=== PATIENT | male | born 1990 | race Caucasian/White ===

== ENCOUNTER 2017-03-16 08:06 | Emergency (ER) | payer SELFPAY ==
[2017-03-16 08:12] VITALS: BP 134/77
--- NOTE | 2017-03-16 08:28 | ER Document Report ---
HPI - HPI Patient complains to provider of: left leg pain Onset: Last week Onset/Duration: Persistent Quality of pain: Sharp Pain Level: 4 Context: Patient presents complaining of left lower extremity pain for the past week. Patient states 7 days ago he had back pain although he denies any low back pain at this time. Patient denies any fever, urinary retention or incontinence. Patient denies any injury. Patient does report a history of low back pain with sciatica in the past and suspects the same today. Associated Symptoms: Other - Low back pain. denies: Fever, Headache, Vomiting Exacerbated by: Movement Relieved by: Denies Similar symptoms previously: Yes Recently seen / treated by doctor: No - ROS ROS below otherwise negative: Yes Systems Reviewed and Negative: Yes All other systems reviewed and negative - CONSTITUTIONAL Constitutional: DENIES: Fever, Chills - NEURO Neurology: DENIES: Weakness - GASTROINTESTINAL Gastrointestinal: DENIES: Nausea - URINARY Urinary: DENIES: Dysuria Notes: No retention or incontinence - MUSCULOSKELETAL Musculoskeletal: REPORTS: Extremity pain. DENIES: Back Pain, Neck Pain - DERM Skin Color: Normal Skin Problems: None Past Medical History - General Information source: Patient - Social History Smoking Status: Never Smoker Frequency of alcohol use: None Drug Abuse: None Occupation: [employer] Lives with: Spouse/Significant other Family History: Reviewed & Not Pertinent Pulmonary Medical History: Reports: Hx Asthma Renal/ Medical History: Denies: Hx Peritoneal Dialysis Musculoskeltal Medical History: Reports Other Other: sciatica Surgical Hx: Negative Vertical Provider Document - CONSTITUTIONAL Agree With Documented VS: Yes Exam Limitations: No Limitations General Appearance: WD/WN, No Apparent Distress Notes: PHYSICAL EXAMINATION: GENERAL: Well-appearing, well-nourished and in no acute distress. HEAD: Atraumatic, normocephalic. EYES: sclera clear, anicteric, conjunctiva are normal. ENT: nares patent, Moist mucous membranes. NECK: Normal range of motion, supple no lymphadenopathy LUNGS: respirations unlabored HEART: Regular rate and rhythm without murmurs EXTREMITIES: Normal range of motion, no pitting or edema. No cyanosis. Gait normal, pt ambulates without difficulty BACK: no lower lumbar tenderness, no deformities or step-offs. No CVA tenderness. NEUROLOGICAL: Cranial nerves grossly intact. Normal speech, normal gait. No saddle anesthesia. 2+achilles, patellar reflexes bilat PSYCH: Normal mood, normal affect. SKIN: Warm, Dry, normal turgor, no rashes or lesions noted. - INFECTION CONTROL TRAVEL OUTSIDE OF THE [place] IN LAST 30 DAYS: No - RESPIRATORY O2 Sat by Pulse Oximetry: 96 Course - Re-evaluation Re-evalutation: 03/16/17 08:27 Discussed worsening emergent symptoms that patient should return immediately for. Patient verbalized understanding and agrees with plan of care - Vital Signs Vital signs: Temp Pulse Resp BP Pulse Ox 97.9 F 97 14 134/77 H 96 03/16/17 08:11 03/16/17 08:11 03/16/17 08:11 03/16/17 08:11 03/16/17 08:11 Discharge - Discharge Clinical Impression: Sciatica Qualifiers: Laterality: left Qualified Code(s): M54.32 - Sciatica, left side Condition: Stable Disposition: HOME, SELF-CARE Instructions: Oral Narcotic Medication ([facility]), Sciatica ([facility]), Steroid Medication Additional Instructions: Return immediately for any new or worsening symptoms Followup with your primary care provider, call tomorrow to make a followup appointment Prescriptions: Oxycodone HCl/Acetaminophen [Percocet 5-325 mg Tablet] 1 tab PO ASDIR PRN #15 tablet PRN Reason: Prednisone [Deltasone 20 mg Tablet] 3 tab PO DAILY 5 Days tablet Forms: Return to Work Referrals: [facility] [Provider Group] - Follow up tomorrow
== END 2017-03-16 08:30 | disposition home or self-care (01) ==
LOC: ER 08:06
DX: M54.32 Sciatica, left side (principal); M79.605 Pain in left leg; M54.5 Low back pain
CPT/HCPCS: 99283

== ENCOUNTER 2017-03-19 08:18 | Emergency (ER) | payer SELFPAY ==
[2017-03-19] MEDS ORDERED: IBUPROFEN 800 MG TABLET PO ONE (10:10)
--- NOTE | 2017-03-19 10:12 | ER Document Report ---
ED Neck/Back Problem - General Chief Complaint: Back Pain Stated Complaint: BACK PAIN/LEFT LEG PAIN Time Seen by Provider: 03/19/17 09:42 Mode of Arrival: Ambulatory Information source: Patient Notes: Male presents to ED for left-sided back pain radiating down his left leg for the last 10 days. He states it has been worse since he was in the ED on Sunday. He was told to come back if it got worse. Patient states it is very painful to lift the leg and it is tight to the back of the leg. He had prednisone and 800 and ibuprofen. States he had a little bit of Flexeril left. TRAVEL OUTSIDE OF THE [place] IN LAST 30 DAYS: No - HPI Onset: Other - 10 days Onset: Chronic Timing: Still present Quality of pain: Sharp Severity: Moderate Context: Turning Recent injury: No Associated symptoms: Radiation to leg, Lower back pain Exacerbated by: Movement of trunk, Sitting position Similar symptoms previously: Yes Recently seen / treated by doctor: Yes - Related Data Allergies/Adverse Reactions: codeine Allergy (Verified 03/19/17 08:53) unknown Home Medications: Current Home Medications Albuterol Sulfate [Ventolin Hfa 8 gm Mdi (1 Mdi/ER Disp)] 2 puff IH PRN PRN [History] Budesonide/Formoterol Fumarate [Symbicort Hfa 160-4.5 Mcg Inhaler 6 gm] 2 puff IH Q12 03/19/17 [History] Cetirizine HCl [Zyrtec 10 mg Tablet] 1 tab PO DAILY 03/19/17 [History] Past Medical History - General Information source: Patient - Social History Smoking Status: Never Smoker Cigarette use (# per day): No Chew tobacco use (# tins/day): No Smoking Education Provided: No Frequency of alcohol use: None Drug Abuse: None Occupation: [employer] professor Lives with: Family Family History: Arthritis, Hyperlipidemia, Hypertension, Malignancy, Thyroid Disfunction Patient has suicidal ideation: No Patient has homicidal ideation: No - Past Medical History Cardiac Medical History: Reports: None Pulmonary Medical History: Reports: Hx Asthma, Hx Bronchitis EENT Medical History: Reports: None Neurological Medical History: Reports: None Endocrine Medical History: Reports: None Renal/ Medical History: Reports: None Malignancy Medical History: Reports None GI Medical History: Reports: None Musculoskeltal Medical History: Reports Hx Arthritis, Reports Hx Musculoskeletal Trauma Skin Medical History: Reports Hx Eczema Psychiatric Medical History: Reports: None Traumatic Medical History: Reports: None Infectious Medical History: Reports: None Surgical Hx: Negative Past Surgical History: Reports: None Review of Systems - Review of Systems Constitutional: No symptoms reported EENT: No symptoms reported Cardiovascular: No symptoms reported Respiratory: No symptoms reported Gastrointestinal: No symptoms reported Genitourinary: No symptoms reported Male Genitourinary: No symptoms reported Musculoskeletal: Back pain, Muscle pain, Muscle stiffness Skin: No symptoms reported Hematologic/Lymphatic: No symptoms reported Neurological/Psychological: No symptoms reported -: Yes All other systems reviewed and negative Physical Exam - Vital signs Vitals: Temp Pulse Resp BP Pulse Ox 98.2 F 87 18 129/80 H 95 03/19/17 08:32 03/19/17 08:32 03/19/17 08:32 03/19/17 08:32 03/19/17 08:32 Interpretation: Normal - General General appearance: Appears well, Alert - HEENT Head: Normocephalic, Atraumatic Eyes: Normal Pupils: PERRL - Respiratory Respiratory status: No respiratory distress Chest status: Nontender Breath sounds: Normal Chest palpation: Normal - Cardiovascular Rhythm: Regular Heart sounds: Normal auscultation Murmur: No - Abdominal Inspection: Normal Distension: No distension Bowel sounds: Normal Tenderness: Nontender Organomegaly: No organomegaly - Back Back: Normal, Tender. No: Deformity/step-off, CVA tenderness, Vertebra tenderness, Scars, Scoliosis, Wounds - Extremities General upper extremity: Normal inspection, Nontender, Normal color, Normal ROM , Normal temperature General lower extremity: Normal inspection, Nontender, Normal color, Normal ROM , Normal temperature, Normal weight bearing. No: Marixa's sign - Neurological Neuro grossly intact: Yes Cognition: Normal Orientation: AAOx4 [place] Coma Scale Eye Opening: Spontaneous [place] Coma Scale Verbal: Oriented Erik Coma Scale Motor: Obeys Commands [place] Coma Scale Total: 15 Speech: Normal Cranial nerves: Normal Cerebellar coordination: Normal Motor strength normal: LUE, RUE, LLE, RLE Additional motor exam normals: Equal piece maker Babinski reflex: Normal (flexor plantar) Sensory: Normal Knee - Reflex grade: 2 = Normal Ankle - Reflex grade: 2 = Normal - Psychological Associated symptoms: Normal affect, Normal mood - Skin Skin Temperature: Warm Skin Moisture: Dry Skin Color: Normal Course - Re-evaluation Re-evalutation: 03/19/17 13:35 No signs or symptoms of cauda equina, no loss of sensation to the buttocks or legs. No lack of control of bowel bladder, no loss control of leg muscles. Patient was discharged home with prescriptions and instructed to follow-up with primary doctor. - Vital Signs Vital signs: Temp Pulse Resp BP Pulse Ox 98.0 F 85 18 125/75 98 03/19/17 10:26 03/19/17 10:26 03/19/17 10:03/19/17 10:03/19/17 10:26 Discharge - Discharge Clinical Impression: Left low back pain Qualifiers: Chronicity: chronic Sciatica presence: with sciatica Sciatica laterality: sciatica of left side Qualified Code(s): M54.42 - Lumbago with sciatica, left side Sciatica Qualifiers: Laterality: left Qualified Code(s): M54.32 - Sciatica, left side Condition: Stable Disposition: HOME, SELF-CARE Instructions: Stretching Exercises for the Back ([facility]) Additional Instructions: LOW BACK PAIN: Three out of every four people will have an episode of disabling back pain during their lifetime. Most commonly the pain is due to straining of the muscles and ligaments in the low back. Usual treatment includes: (1) Rest on a firm surface. Avoid lying on your stomach. (2) Ice pack the painful area. After a few days, gentle heat may be used intermittently to relax the area, or ice packs can be continued. (3) Medication may be needed -- muscle relaxers and antiinflammatory medicines are commonly used. (4) As the back improves, exercises are prescribed to strengthen the back and abdominal muscles. Your doctor will advise you on the proper care for your back at each stage in your recovery. You may be better in a few days -- or healing may take several weeks. If new symptoms of a "herniated disc" (radiation of pain, numbness, or tingling down the back of the leg or weakness in the leg) occur, you should be re-examined. Further testing may be necessary. MUSCLE RELAXERS: Muscle relaxing medications are usually prescribed for acute muscle spasm or injury to the neck and back. They are often combined with antiinflammatory pain medication for increased relief. You may stop the muscle relaxer when the pain and stiffness have improved. Start the medication again if spasms recur. Muscle relaxers may cause drowsiness, especially with the first dose. Do not operate machinery or drive while under the effects of the medication. Most muscle relaxers last up to 24 hours. Do not combine the medication with alcohol. Anti-Inflammatory Medication You have received a prescription for an antiinflammatory agent. This is an excellent, safe drug for pain control. In addition, it has potent antiinflammatory effects which are beneficial, especially in the treatment of injuries, arthritis, or tendonitis. It's best to take this medicine with food. Persons with ulcer disease or allergy to aspirin should notify their physician of this before taking this drug. Take the medication exactly as prescribed. Don't take additional doses unless instructed to do so by your doctor. If you develop wheezing, shortness of breath, hives, faintness, stomach pain, vomiting, or dark black stools, return for re-evaluation at once. ICE PACKS: Apply ice packs frequently against the painful area. Many different schedules are recommended, such as "20 minutes on, 20 minutes off" or "one hour ice, two hours rest." If you need to work, you may need to go longer between ice treatments. You should plan to have the area ice packed AT LEAST one fourth of the time. The ice should be applied over the wrap, tape, or splint, or over a layer of cloth -- not directly against the skin. Some ice bags have a built-in cloth and can be put directly on the skin. WARM PACKS: After approximately two days, apply gentle heat (such as a heating pad or hot water bottle) for about 20 to 30 minutes about every two hours -- at least four times daily. Warmth and elevation will help you make a more rapid recovery , and will ease the pain considerably. Do not use HOT heat, and never apply heat for longer than 30 minutes. The continuous heat can invisibly damage skin and muscles -- even when no burn is seen on the surface. Damaged muscles can make you MORE sore. FOLLOW-UP CARE: If you have been referred to a physician for follow-up care, call the physician s office for an appointment as you were instructed or within the next two days. If you experience worsening or a significant change in your symptoms, notify the physician immediately or return to the Emergency Department at any time for re-evaluation. Prescriptions: Methocarbamol [Robaxin 500 mg Tablet] 500 mg PO BIDP PRN #20 tablet PRN Reason: Naproxen 500 mg PO BIDP PRN #20 tablet PRN Reason: Forms: Return to Work Referrals: BRENDA ARCHULETA MD [Primary Care Provider] - Follow up as needed
[2017-03-19 10:27] VITALS: BP 125/75
== END 2017-03-19 10:27 | disposition home or self-care (01) ==
LOC: ER 08:18
DX: M54.42 Lumbago with sciatica, left side (principal); Z88.6 Allergy status to analgesic agent
CPT/HCPCS: 99283

== ENCOUNTER 2017-09-13 07:57 | Emergency (ER) | payer SELFPAY ==
[2017-09-13 08:04] VITALS: BP 136/85
[2017-09-13] MEDS ORDERED: CYCLOBENZAPRINE HCL 10 MG TABLET PO ONE (08:16)
[2017-09-13] MEDS ORDERED: OXYCODONE-ACETAMINOPHEN 5-325 MG TABLET PO ONE (08:16)
[2017-09-13] MEDS ORDERED: PREDNISONE 20 MG TABLET PO ONE (08:16)
--- NOTE | 2017-09-13 08:22 | ER Document Report ---
ED Neck/Back Problem - General Chief Complaint: Back Pain Stated Complaint: BACK PAIN Time Seen by Provider: 09/13/17 08:09 Mode of Arrival: Ambulatory Information source: Patient Notes: Pt is a 27 year old male who presents to the ER today for low back pain after mulching the yard two days ago. He states it started in the entire lower back, then migrated to more left low back down the back of the left leg. He denies numbness/tingling anywhere. He states this has happened once before and muscle relaxers and steroids made it better. He's been taking motrin, but states he has had "bleeding" before from too much motrin so doesn't want to keep doing that. He denies any sharp pain, loss of bladder or bowel function. TRAVEL OUTSIDE OF THE [place] IN LAST 30 DAYS: No - Related Data Allergies/Adverse Reactions: codeine Allergy (Verified 03/19/17 08:53) unknown Past Medical History - General Information source: Patient - Social History Smoking Status: Never Smoker Family History: Arthritis, Hyperlipidemia, Hypertension, Malignancy, Thyroid Disfunction Pulmonary Medical History: Reports: Hx Asthma, Hx Bronchitis Renal/ Medical History: Denies: Hx Peritoneal Dialysis Musculoskeltal Medical History: Reports Hx Arthritis, Reports Hx Musculoskeletal Trauma Skin Medical History: Reports Hx Eczema Review of Systems - Review of Systems Constitutional: No symptoms reported EENT: No symptoms reported Cardiovascular: No symptoms reported Respiratory: No symptoms reported Gastrointestinal: No symptoms reported Genitourinary: No symptoms reported Male Genitourinary: No symptoms reported Musculoskeletal: See HPI Skin: No symptoms reported Hematologic/Lymphatic: No symptoms reported Neurological/Psychological: No symptoms reported Physical Exam - Vital signs Vitals: Temp Pulse Resp BP Pulse Ox 98.5 F 88 16 136/85 H 98 09/13/17 08:03 09/13/17 08:03 09/13/17 08:03 09/13/17 08:03 09/13/17 08:03 - Notes Notes: PHYSICAL EXAMINATION: GENERAL: uncomfortable appearing, but in no acute distress. HEAD: Atraumatic, normocephalic. EYES: Pupils equal round and reactive to light, extraocular movements intact, sclera anicteric, conjunctiva are normal. NECK: Normal range of motion, supple without lymphadenopathy LUNGS: CTAB and equal. No wheezes rales or rhonchi. HEART: Regular rate and rhythm without murmurs ABDOMEN: Soft, no tenderness. No guarding, no rebound BACK: no SI joint tenderness, no vertebral tenderness,mildly limited ROM due to pain GI/: no CVA tenderness EXTREMITIES: Normal range of motion, no pitting edema. No cyanosis. NEUROLOGICAL: Cranial nerves grossly intact. Normal sensory/motor exams. PSYCH: Normal mood, normal affect. SKIN: Warm, Dry, normal turgor, no rashes or lesions noted Course - Re-evaluation Re-evalutation: 09/13/17 08:24 I see no reason for x rays today as there was no injury and no vertebral tenderness. Patient is okay with this plan as he has had this before. I will not place patient on Motrin as he has had a history of bleeding, sounds like gastric in origin. - Vital Signs Vital signs: Temp Pulse Resp BP Pulse Ox 98.5 F 88 16 136/85 H 98 09/13/17 08:03 09/13/17 08:03 09/13/17 08:03 09/13/17 08:03 09/13/17 08:03 Discharge - Discharge Clinical Impression: Low back pain Qualifiers: Chronicity: acute Back pain laterality: left Sciatica presence: with sciatica Sciatica laterality: sciatica of left side Qualified Code(s): M54.42 - Lumbago with sciatica, left side Condition: Stable Disposition: HOME, SELF-CARE Additional Instructions: Return immediately for any new or worsening symptoms. Follow up with primary care provider, call tomorrow to make followup appointment. Prescriptions: Cyclobenzaprine HCl [Flexeril 10 mg Tablet] 10 mg PO TIDP PRN #15 tab PRN Reason: Oxycodone HCl/Acetaminophen [Percocet 5-325 mg Tablet] 1 tab PO Q4 PRN #15 tab PRN Reason: Prednisone 40 mg PO DAILY #10 tablet Forms: Return to Work
== END 2017-09-13 08:43 | disposition home or self-care (01) ==
LOC: ER 07:57
DX: M54.42 Lumbago with sciatica, left side (principal); J45.909 Unspecified asthma, uncomplicated; Z88.5 Allergy status to narcotic agent
CPT/HCPCS: 99283

== ENCOUNTER 2019-09-24 06:57 | Observation (INO) | payer OTHER ==
[2019-09-24 12:16] LABS: ABSOLUTE BASOPHILS # (AUTO) 0.1 10^3/uL (0.0-0.2); ABSOLUTE EOSINOPHILS # (AUTO) 0.2 10^3/uL (0.0-0.6); ABSOLUTE LYMPHOCYTES (AUTO) 2.3 10^3/uL (0.5-4.7); ABSOLUTE MONOCYTES (AUTO) 1.1 10^3/uL (0.1-1.4); ABSOLUTE NEUT (AUTO) 9.9 10^3/uL (1.7-8.2); BASOPHILS % (AUTO) 0.4 % (0-2); EOSINOPHILS % (AUTO) 1.7 % (0-6); HEMOGLOBIN 16.9 g/dL (13.5-17.0); LYMPHOCYTES % (AUTO) 16.9 % (13-45); MEAN CORPUSCULAR HEMOGLOBIN 29.7 pg (27.0-33.4); MEAN CORPUSCULAR HGB CONC 34.5 g/dL (32.0-36.0); MEAN CORPUSCULAR VOLUME 86 fl (80-97); MONOCYTES % (AUTO) 8.4 % (3-13); PLATELET COUNT 233 10^3/uL (150-450); RED BLOOD COUNT 5.68 10^6/uL (4.35-5.55); RED CELL DISTRIBUTION WIDTH 13.3 % (11.5-14.0); SEGMENTED NEUTROPHILS % (AUTO) 72.6 % (42-78); TOTAL CELLS COUNTED % (AUTO) 100 %; WHITE BLOOD COUNT 13.7 10^3/uL (4.0-10.5)
[2019-09-24 12:38] LABS: ALBUMIN 5.1 g/dL (3.5-5.0); ALKALINE PHOSPHATASE 91 U/L (38-126); ANION GAP 12 (5-19); ASPARTATE AMINO TRANSFERASE 39 U/L (17-59); BILIRUBIN,DIRECT 0.3 mg/dL (0.0-0.4); BILIRUBIN,TOTAL 0.8 mg/dL (0.2-1.3); BLOOD UREA NITROGEN 11 mg/dL (7-20); CALCIUM 10.1 mg/dL (8.4-10.2); CARBON DIOXIDE 27 mmol/L (22-30); CHLORIDE 101 mmol/L (98-107); GLUCOSE 90 mg/dL (75-110); POTASSIUM 4.4 mmol/L (3.6-5.0); TOTAL PROTEIN 9.3 g/dL (6.3-8.2)
[2019-09-24] MEDS ORDERED: MORPHINE SULFATE 10 MG/ML INJ IV PRN (13:39)
[2019-09-24] MEDS ORDERED: ONDANSETRON HCL INJ/PF 4 MG/2 ML SDV IV PRN (13:39)
[2019-09-24] MEDS ORDERED: VANCOMYCIN HCL 0 MG in DEXTROSE 5%-WATER 250 ML IV NR (13:45)
--- NOTE | 2019-09-24 13:54 | PDOC H&P ---
History of Present Illness Patient complains of: Swelling and pain in the right axilla. History of Present Illness: BLAKE VIRAMONTES is a 29 year old male who I have previously seen in the office. The patient has a mass in the right axilla, that has been present for almost 2 months now. The patient reports that for the last 2 days it has become increasingly tender and swollen. There is redness and fluctuance. The change happened spontaneously, without any inciting factor. His pain is sharp and stabbing. His pain is rated as 8 out of 10. Nothing makes it better. Palpation and movement make his pain worse. The patient denies chest pain, shortness of breath, fevers, chills, nausea, vomiting, headache, fatigue, malaise, blurry vision, dizziness, orthostasis, melena, hematochezia, hematemesis, abdominal pain. Past Medical History Pulmonary Medical History: Reports: Asthma, Bronchitis Musculoskeltal Medical History: Reports: Arthritis Skin Medical History: Reports: Eczema Past Surgical History Past Surgical History: Reports: None Social History Smoking Status: Never Smoker Electronic Cigarette use?: No Frequency of Alcohol Use: None Hx Recreational Drug Use: No Hx Prescription Drug Abuse: No Family History Family History: Arthritis, Hyperlipidemia, Hypertension, Malignancy, Thyroid Dis function Parental Family History Reviewed: Yes Children Family History Reviewed: Yes Sibling(s) Family History Reviewed.: Yes Medication/Allergy Home Medications: Cyclobenzaprine HCl [Flexeril 10 mg Tablet] 10 mg PO TIDP PRN #15 tab 09/13/17 Oxycodone HCl/Acetaminophen [Percocet 5-325 mg Tablet] 1 tab PO Q4 PRN #15 tab 09/13/17 Prednisone 40 mg PO DAILY #10 tablet 09/13/17 Allergies/Adverse Reactions: codeine Allergy (Verified 09/24/19 07:34) unknown Review of Systems Constitutional: ABSENT: anorexia, chills, fatigue, fever(s), headache(s), weakness Eyes: ABSENT: visual disturbances Ears: ABSENT: hearing changes Nose, Mouth, and Throat: ABSENT: mouth pain, sore throat Cardiovascular: ABSENT: chest pain Respiratory: ABSENT: cough Gastrointestinal: ABSENT: abdominal pain, bloating Genitourinary: ABSENT: dysuria Musculoskeletal: ABSENT: back pain Integumentary: ABSENT: pruritus, rash Neurological: ABSENT: confusion, convulsions, dizziness Psychiatric: ABSENT: anxiety, depression Endocrine: ABSENT: cold intolerance, heat intolerance Hematologic/Lymphatic: ABSENT: easy bleeding, easy bruising Physical Exam Vital Signs: Temp Pulse Resp BP Pulse Ox 98.1 F 89 20 129/83 H 95 09/24/19 07:19 09/24/19 07:19 09/24/19 07:19 09/24/19 07:19 09/24/19 07:19 Intake & Output 09/23/19 09/24/19 09/25/19 06:59 06:59 06:59 Weight 98 kg General appearance: PRESENT: cooperative Head exam: PRESENT: atraumatic, normocephalic Eye exam: PRESENT: EOMI, PERRLA. ABSENT: scleral icterus Mouth exam: PRESENT: moist, neck supple Neck exam: ABSENT: meningismus, tenderness, thyromegaly, tracheal deviation Respiratory exam: PRESENT: clear to auscultation reji. ABSENT: chest wall tenderness, tachypnea Cardiovascular exam: ABSENT: tachycardia Vascular exam: PRESENT: normal capillary refill. ABSENT: pallor GI/Abdominal exam: PRESENT: soft. ABSENT: rebound, rigid, tenderness Rectal exam: PRESENT: deferred Musculoskeletal exam: ABSENT: deformity Neurological exam: PRESENT: alert, awake, oriented to person, oriented to place, oriented to time, oriented to situation, CN II-XII grossly intact. ABSENT: motor sensory deficit Psychiatric exam: ABSENT: agitated, anxious, depressed Focused psych exam: ABSENT: catatonic, delusional, paranoid, restlessness Skin exam: PRESENT: erythema, warm, other - Warm, erythematous, fluctuant mass of the right axilla. Tenderness to palpation. Results Laboratory Results: 09/24/19 11:58 09/24/19 11:58 09/24/19 09/24/19 11:58 11:58 WBC 13.7 H RBC 5.68 H Hgb 16.9 Hct 49.0 MCV 86 MCH 29.7 MCHC 34.5 RDW 13.3 Plt Count 233 Seg Neutrophils % 72.6 Sodium 139.9 Potassium 4.4 Chloride 101 Carbon Dioxide 27 Anion Gap 12 BUN 11 Creatinine 0.64 Est GFR ( Amer) > 60 Glucose 90 Calcium 10.1 Total Bilirubin 0.8 AST 39 Alkaline Phosphatase 91 Total Protein 9.3 H Albumin 5.1 H Assessment & Plan - Diagnosis (1) Abscess of right axilla Is this a current diagnosis for this admission?: Yes - Plan Summary Plan Summary: This is a 29-year-old male with a 2-month history of a mass in the right axilla. Over the last 48 hours it is becoming increasingly swollen, erythematous, and fluctuant. The patient now has an apparent infection in the area. This could represent an abscess lymph node, or a secondarily infected sebaceous cyst. In either case, the patient will require operative incision, drainage, and removal of the mass. I have discussed this with the patient at length. He is in agreement with the treatment plan. Risks/benefits discussed, informed consent obtained, and all questions answered. Start patient on vancomycin and IV fluids for now. Keep n.p.o.
--- NOTE | 2019-09-24 13:54 | ER Document Report ---
ED General - General Chief Complaint: Abscess Stated Complaint: SIDE PAIN Time Seen by Provider: 09/24/19 10:58 Mode of Arrival: Ambulatory Information source: Patient TRAVEL OUTSIDE OF THE [place] IN LAST 30 DAYS: No - HPI Notes: Patient presents with right axillary pain. He states this pain is been constant for several days now. He states he noticed a lump that is been there for proxy 1 month but it does started become painful and enlarged over the last several days. This pain does radiate down the right side of his chest on the lateral aspect. It is moderate in intensity. Is worse if touched and better if left alone. It is a sharp pain. He denies any fevers or other concerns. - Related Data Allergies/Adverse Reactions: codeine Allergy (Verified 09/24/19 07:34) unknown Home Medications: [facility] Past Medical History - General Information source: Patient - Social History Smoking Status: Never Smoker Chew tobacco use (# tins/day): No Frequency of alcohol use: None Drug Abuse: None Family History: Arthritis, Hyperlipidemia, Hypertension, Malignancy, Thyroid Disfunction Patient has suicidal ideation: No Patient has homicidal ideation: No Pulmonary Medical History: Reports: Hx Asthma, Hx Bronchitis Renal/ Medical History: Denies: Hx Peritoneal Dialysis Musculoskeletal Medical History: Reports Hx Arthritis, Reports Hx Musculoskeletal Trauma Skin Medical History: Reports Hx Eczema Review of Systems - Review of Systems Constitutional: denies: Chills, Fever Cardiovascular: denies: Chest pain, Palpitations Respiratory: denies: Cough, Short of breath -: Yes All other systems reviewed and negative Physical Exam - Vital signs Vitals: Temp Pulse Resp BP Pulse Ox 98.1 F 89 20 129/83 H 95 09/24/19 07:19 09/24/19 07:19 09/24/19 07:19 09/24/19 07:19 09/24/19 07:19 Interpretation: Normal - General General appearance: Appears well, Alert - HEENT Head: Normocephalic, Atraumatic Eyes: Normal Pupils: PERRL - Respiratory Respiratory status: No respiratory distress Chest status: Nontender Breath sounds: Normal Chest palpation: Normal - Cardiovascular Rhythm: Regular Heart sounds: Normal auscultation Murmur: No - Abdominal Inspection: Normal Distension: No distension Bowel sounds: Normal Tenderness: Nontender Organomegaly: No organomegaly - Back Back: Normal, Nontender - Extremities General upper extremity: Normal inspection, Tender - Patient's has a large mass in the right axillary space. It is tender and fluctuant., Normal color, Normal ROM, Normal temperature General lower extremity: Normal inspection, Nontender, Normal color, Normal ROM, Normal temperature, Normal weight bearing. No: Marixa's sign - Neurological Neuro grossly intact: Yes Cognition: Normal Orientation: AAOx4 [place] Coma Scale Eye Opening: Spontaneous Char[place] Coma Scale Verbal: Oriented Charlo Coma Scale Motor: Obeys Commands Erik Coma Scale Total: 15 Speech: Normal Motor strength normal: LUE, RUE, LLE, RLE Sensory: Normal - Psychological Associated symptoms: Normal affect, Normal mood - Skin Skin Temperature: Warm Skin Moisture: Dry Skin Color: Normal Course - Re-evaluation Re-evalutation: 09/24/19 13:55 Patient has a large mass in the right axillary space. I consulted Dr. Fontana who saw the patient and will take him to the operating room for removal. - Vital Signs Vital signs: Temp Pulse Resp BP Pulse Ox 98.1 F 89 20 129/83 H 95 09/24/19 07:19 09/24/19 07:19 09/24/19 07:19 09/24/19 07:19 09/24/19 07:19 - Laboratory Result Diagrams: 09/24/19 11:58 09/24/19 11:58 Laboratory results interpreted by me: 09/24/19 09/24/19 11:58 11:58 WBC 13.7 H RBC 5.68 H Absolute Neuts (auto) 9.9 H Total Protein 9.3 H Albumin 5.1 H Discharge - Discharge Clinical Impression: Axillary abscess, Abscess of right axilla Condition: Stable Disposition: ADMITTED INPATIENT Admitting Provider: Rangelist Lamont fontana Unit Admitted: Surgical Floor
--- NOTE | 2019-09-24 14:41 | RADIOLOGY REPORT (SQ) ---
EXAM DESCRIPTION: U/S EXTREMITY NONVASCULAR LTD COMPLETED DATE/TIME: 09/24/2019 2:11 pm REASON FOR STUDY: evaluate axillary mass right side COMPARISON: None. TECHNIQUE: Dynamic and static grayscale images acquired of the localized site of clinical concern an d recorded on PACS. Additional selected color Doppler and spectral images recorded. SITE OF CONCERN: Right axilla LIMITATIONS: None. FINDINGS: SKIN AND SUBCUTANEOUS TISSUES: There is a complex 3.4 x 3.0 x 2.6 cm lesion in the left ax illa at the site of the clinical symptoms. This demonstrates mixed echogenicity. Minimal peripheral vascularity. DEEP SOFT TISSUES/MUSCLES: No masses. No fluid collections. No edema. VASCULAR: No increased or decreased vascularity. No occlusions. OTHER: No other significant finding. IMPRESSION: Focal 3.4 x 3.0 x 2.6 cm mass. Differential includes developing abscess versus enlarged lymph node. TECHNICAL DOCUMENTATION: JOB ID: [id number] 2010 [employer]- All Rights Reserved Reading location - IP/workstation name: [email or web address]
[2019-09-24] MEDS: VANCOMYCIN HCL 1,500 MG in DEXTROSE 5%-WATER 250 ML IV SCH ×2 (15:07→21:26)
[2019-09-24] MEDS: KETOROLAC TROMETHAMINE INJ/PF 30 MG/1 ML SDV IV SCH ×2 (15:08→21:27)
[2019-09-24] MEDS: DEXTROSE 5%-LACTATED RINGERS 1,000 ML IV PRN (16:50)
[2019-09-24] MEDS: FAMOTIDINE INJ/PF 20 MG/2 ML SDV IV SCH (21:27)
[2019-09-24] MEDS ORDERED: FENTANYL CITRATE INJ/PF 100 MCG/2 ML AMPUL ONE (22:10)
[2019-09-24] MEDS ORDERED: MIDAZOLAM 2 MG/2 ML INJ ONE (22:11)
[2019-09-24] MEDS ORDERED: ONDANSETRON HCL INJ/PF 4 MG/2 ML SDV ONE (22:11)
[2019-09-24] MEDS ORDERED: PROPOFOL INJ 200 MG/20 ML VIAL IV ONE (22:11)
[2019-09-24] MEDS ORDERED: BUPIVACAINE HCL 0.25 % INJ/PF (2.5 MG/1 ML) 30 ML VIAL ONE (22:21)
[2019-09-24] MEDS ORDERED: LIDOCAINE 1% INJ-PF (10 MG/ML) 30 ML SDV ONE (22:21)
[2019-09-24] MEDS ORDERED: BACITRACIN ZINC OINTMENT 15 GM ONE (23:03)
[2019-09-24] MEDS ORDERED: HYDROCODONE/ACETAMINOPHEN 10-325 MG TABLET PO PRN (23:32)
[2019-09-24] MEDS ORDERED: ALBUTEROL SULFATE HFA (90 MCG/PUFF) 8 GM MDI IH PRN (23:32)
[2019-09-25] MEDS: DEXTROSE 5%-LACTATED RINGERS 1,000 ML IV PRN (04:51)
[2019-09-25] MEDS: VANCOMYCIN HCL 1,500 MG in DEXTROSE 5%-WATER 250 ML IV SCH (05:09)
--- NOTE | 2019-09-25 06:19 | Operative Report ---
Nonrecallable Operative Report DATE OF SURGERY: 09/24/19 PREOPERATIVE DIAGNOSIS: Right axillary mass POSTOPERATIVE DIAGNOSIS: Right axillary abscess, likely an abscessed lymph node. OPERATION: Excision of right axillary mass, 4 x 3 cm (likely abscessed lymph node) SURGEON: CORNELIA LOPEZ ANESTHESIA: LMAC TISSUE REMOVED OR ALTERED: 4 x 3 cm right axillary mass COMPLICATIONS: Purulent material encountered. All purulence was removed. Wound left open with packing in place. ESTIMATED BLOOD LOSS: Minimal PROCEDURE: Drains/implants: Kerlix packing. Procedure in detail: After informed consent was obtained, the patient was brought to the operating room and laid in the supine position. The area of the right axilla was prepped and draped in a normal sterile fashion. An incision was created over the enlarged, masslike lesion. Dissection was carried through the subcutaneous tissues using a mixture of sharp dissection, blunt dissection, and electrocautery. In the center of the indurated area, a pocket of thick, milky, purulent material was encountered. The entire area was inflamed. It appeared to be a necrotic/abscessed lymph node. The entirety of the mass was excised completely and removed from the patient. The mass measured approximately 4 x 3 cm. Once the lesion was completely removed from the p atient, hemostasis was achieved using judicious amounts of electrocautery. The medial and lateral portions of the wound were then reapproximated using 3-0 Vicryl in simple interrupted fashion. The middle portion of the wound was left open. This was then packed with a damp Kerlix. A dressing was placed, and the procedure was concluded. All sponge, instrument, and needle counts were correct x2. Condition: Stable.
[2019-09-25 07:15] LABS: ABSOLUTE BASOPHILS # (AUTO) 0.1 10^3/uL (0.0-0.2); ABSOLUTE EOSINOPHILS # (AUTO) 0.3 10^3/uL (0.0-0.6); ABSOLUTE LYMPHOCYTES (AUTO) 2.6 10^3/uL (0.5-4.7); ABSOLUTE NEUT (AUTO) 6.6 10^3/uL (1.7-8.2); BASOPHILS % (AUTO) 0.8 % (0-2); EOSINOPHILS % (AUTO) 2.6 % (0-6); HEMATOCRIT 45.7 % (37.9-51.0); HEMOGLOBIN 15.8 g/dL (13.5-17.0); LYMPHOCYTES % (AUTO) 24.6 % (13-45); MEAN CORPUSCULAR HEMOGLOBIN 29.7 pg (27.0-33.4); MEAN CORPUSCULAR HGB CONC 34.5 g/dL (32.0-36.0); MEAN CORPUSCULAR VOLUME 86 fl (80-97); MONOCYTES % (AUTO) 9.3 % (3-13); PLATELET COUNT 197 10^3/uL (150-450); RED BLOOD COUNT 5.31 10^6/uL (4.35-5.55); RED CELL DISTRIBUTION WIDTH 13.2 % (11.5-14.0); SEGMENTED NEUTROPHILS % (AUTO) 62.7 % (42-78); TOTAL CELLS COUNTED % (AUTO) 100 %; WHITE BLOOD COUNT 10.5 10^3/uL (4.0-10.5)
[2019-09-25 07:19] VITALS: BP 103/65
[2019-09-25] MEDS: KETOROLAC TROMETHAMINE INJ/PF 30 MG/1 ML SDV IV SCH (08:03)
[2019-09-25] MEDS ORDERED: FLUTICASONE/VILANTEROL 200-25 MCG/DOSE IH SCH ×2 (10:00)
[2019-09-25] MEDS: FAMOTIDINE INJ/PF 20 MG/2 ML SDV IV SCH (10:04)
--- NOTE | 2019-09-27 14:45 | PDOC DISCHARGE SUMMARY ---
General - Admit/Disc Date/PCP Admission Date/Primary Care Provider: 09/24/19 14:14 Discharge Date: 09/25/19 - Discharge Diagnosis Final Diagnosis: Right axillary abscess/abscess lymph node - Assessment Summary: Patient underwent excision of abscess right axillary lymph node on 09/24/[address] Lorenzana. The next day patient did very well and is needed wound packing of the right axilla. Patient was then discharged on 09/25/2019. Patient is [employer] and cannot take care of the changing of packing from the right axilla daily. - Additional Information Resuscitation Status: Full Code Discharge Diet: Regular Discharge Activity: Activity As Tolerated, No Lifting Over 10 Pounds Referrals: CORNELIA LORENZANA MD [ACTIVE STAFF] - 10/07/19 11:00 am Home Medications: Albuterol Sulfate [Ventolin Hfa 8 gm Mdi] 2 puff IH Q4HP PRN 09/24/19 Budesonide/Formoterol Fumarate [Symbicort Hfa 160-4.5 Mcg Inhaler 6 gm] 2 puff IH Q12 09/24/19 History of Present Illiness History of Present Illness: BLAKE VIRAMONTES is a 29 year old male Physical Exam Vital Signs: Temp Pulse Resp BP Pulse Ox 97.6 F 66 15 103/65 98 09/25/19 10:38 09/25/19 10:38 09/25/19 10:38 09/25/19 07:17 09/25/19 10:38 Intake & Output 09/26/19 09/27/19 09/28/19 06:59 06:59 06:59 Intake Total 250 Balance 250 Results Laboratory Results: WBC 10.5 10^3/uL (4.0-10.5) 09/25/19 06:18 RBC 5.31 10^6/uL (4.35-5.55) 09/25/19 06:18 Hgb 15.8 g/dL (13.5-17.0) 09/25/19 06:18 Hct 45.7 % (37.9-51.0) 09/25/19 06:18 MCV 86 fl (80-97) 09/25/19 06:18 MCH 29.7 pg (27.0-33.4) 09/25/19 06:18 MCHC 34.5 g/dL (32.0-36.0) 09/25/19 06:18 RDW 13.2 % (11.5-14.0) 09/25/19 06:18 Plt Count 197 10^3/uL (150-450) 09/25/19 06:18 Lymph % (Auto) 24.6 % (13-45) 09/25/19 06:18 [place] % (Auto) 9.3 % (3-13) 09/25/19 06:18 Eos % (Auto) 2.6 % (0-6) 09/25/19 06:18 Baso % (Auto) 0.8 % (0-2) 09/25/19 06:18 Absolute Neuts (auto) 6.6 10^3/uL (1.7-8.2) 09/25/19 06:18 Absolute Lymphs (auto) 2.6 10^3/uL (0.5-4.7) 09/25/19 06:18 Absolute Monos (auto) 1.0 10^3/uL (0.1-1.4) 09/25/19 06:18 Absolute Eos (auto) 0.3 10^3/uL (0.0-0.6) 09/25/19 06:18 Absolute Basos (auto) 0.1 10^3/uL (0.0-0.2) 09/25/19 06:18 Seg Neutrophils % 62.7 % (42-78) 09/25/19 06:18 Sodium 139.9 mmol/L (137-145) 09/24/19 11:58 Potassium 4.4 mmol/L (3.6-5.0) 09/24/19 11:58 Chloride 101 mmol/L (98-107) 09/24/19 11:58 Carbon Dioxide 27 mmol/L (22-30) 09/24/19 11:58 Anion Gap 12 (5-19) 09/24/19 11:58 BUN 11 mg/dL (7-20) 09/24/19 11:58 Creatinine 0.64 mg/dL (0.52-1.25) 09/24/19 11:58 Est GFR ( Amer) > 60 (>60) 09/24/19 11:58 Est GFR (MDRD) Non-Af > 60 (>60) 09/24/19 11:58 Glucose 90 mg/dL (75-110) 09/24/19 11:58 Calcium 10.1 mg/dL (8.4-10.2) 09/24/19 11:58 Total Bilirubin 0.8 mg/dL (0.2-1.3) 09/24/19 11:58 Direct Bilirubin 0.3 mg/dL (0.0-0.4) 09/24/19 11:58 Neonat Total Bilirubin Not Reportable 09/24/19 11:58 Neonat Direct Bilirubin Not Reportable 09/24/19 11:58 Neonat Indirect Bili Not Reportable 09/24/19 11:58 AST 39 U/L (17-59) 09/24/19 11:58 ALT 45 U/L (<50) 09/24/19 11:58 Alkaline Phosphatase 91 U/L (38-126) 09/24/19 11:58 Total Protein 9.3 g/dL (6.3-8.2) H 09/24/19 11:58 Albumin 5.1 g/dL (3.5-5.0) H 09/24/19 11:58 Impressions: Extremity Ultrasound 09/24/19 11:33 IMPRESSION: Focal 3.4 x 3.0 x 2.6 cm mass. Differential includes developing abscess versus enlarged lymph node.
== END 2019-09-25 11:43 | disposition home or self-care (01) ==
LOC: ER 06:57 → EH 14:14 → INTOOBSV 14:14 → 5 16:26
PROVIDERS: ATTEND Surgery
DX: R22.31 Localized swelling, mass and lump, right upper limb (principal); L02.411 Cutaneous abscess of right axilla; M79.89 Other specified soft tissue disorders
CPT/HCPCS: 99284; 36415; 85025 ×2; 80053; 76882; 24065; J2250; J3490 ×3; J3010; J1885; J2405; J7060 ×2; J7121 ×2; J2704; J3370 ×2; S0028 ×2; 400; 88305; G0378

== ENCOUNTER 2020-06-17 00:21 | Emergency (ER) | payer SELFPAY ==
[2020-06-17] MEDS ORDERED: IPRATROPIUM/ALBUTEROL 0.5-2.5 MG/3 ML AMPUL NEB ONE (00:53)
--- NOTE | 2020-06-17 00:56 | ER Document Report ---
ED Medical Screen (RME) - General Chief Complaint: Asthma Exacerbation Stated Complaint: SHORTNESS OF BREATH Time Seen by Provider: 06/17/20 00:52 Mode of Arrival: Ambulatory Information source: Patient Notes: 29-year-old male with history of severe asthma on multiple inhalers coming in today with chest tightness. Initially had what they thought was a sinus infection. He was treated for this but is now having tightness in his chest. No fevers or chills. No body aches. No nausea vomiting or diarrhea. General: nonToxic appearing Pulmonary diminished bilaterally\ Cardiac regular rate and rhythm Abdomen nondistended Neuro no focal deficits I have greeted and performed a rapid initial assessment of this patient. A comprehensive ED assessment and evaluation of the patient, analysis of test results and completion of the medical decision making process will be conducted by additional ED providers. TRAVEL OUTSIDE OF THE [place] IN LAST 30 DAYS: No - Related Data Allergies/Adverse Reactions: codeine Allergy (Verified 09/24/19 07:34) unknown nut - unspecified Allergy (Verified 09/24/19 15:10) vancomycin Adverse Reaction (Mild, Verified 09/24/19 16:03) sweating, warmth Home Medications: albureterol inh, symbicort Past Medical History - Social History Chew tobacco use (# tins/day): No Frequency of alcohol use: None Drug Abuse: None Pulmonary Medical History: Reports: Hx Asthma, Hx Bronchitis Renal/ Medical History: Denies: Hx Peritoneal Dialysis Musculoskeltal Medical History: Reports Hx Arthritis, Reports Hx Musculoskeletal Trauma Skin Medical History: Reports Hx Eczema Physical Exam - Vital signs Vitals: Temp Pulse Resp BP Pulse Ox 97.8 F 67 16 106/72 97 06/17/20 00:31 06/17/20 00:31 06/17/20 00:31 06/17/20 00:31 06/17/20 00:31 Course - Vital Signs Vital signs: Temp Pulse Resp BP Pulse Ox 97.8 F 67 16 106/72 97 06/17/20 00:31 06/17/20 00:31 06/17/20 00:31 06/17/20 00:31 06/17/20 00:31
--- NOTE | 2020-06-17 01:37 | RADIOLOGY REPORT (SQ) ---
EXAM DESCRIPTION: XR CHEST 1 VIEW COMPLETED DATE/TME: 06/17/2020 01:24 CLINICAL INDICATION: 29-year-old male with chest tightness. TECHNIQUE: Single view, AP portable chest was obtained. COMPARISON: None. FINDINGS: Unremarkable cardiac and mediastinal silhouette. Heart size is normal. Lungs are clear without focal opacity, pneumothorax or pleural effusions. The visualized bones are within normal limits. IMPRESSION: No acute cardiopulmonary abnormalities.
--- NOTE | 2020-06-17 01:40 | ER Document Report ---
ED General - General Chief Complaint: Asthma Exacerbation Stated Complaint: SHORTNESS OF BREATH Time Seen by Provider: 06/17/20 00:52 Mode of Arrival: Ambulatory Information source: Patient Notes: 29-year-old male with history of advanced asthma coming in today with "inflammation" in his chest. He was seen a few days ago for a sinus type infection. Was put on 40 mg prednisone for 5 days. That will run out tomorrow. Patient feeling a tightness in his chest. No fevers or chills. No nausea vomiting or diarrhea. No other symptoms consistent with upper respiratory illness or Covid. TRAVEL OUTSIDE OF THE [place] IN LAST 30 DAYS: No - Related Data Allergies/Adverse Reactions: codeine Allergy (Verified 09/24/19 07:34) unknown nut - unspecified Allergy (Verified 09/24/19 15:10) vancomycin Adverse Reaction (Mild, Verified 09/24/19 16:03) sweating, warmth Home Medications: albureterol inh, symbicort Past Medical History - General Information source: Patient - Social History Smoking Status: Never Smoker Chew tobacco use (# tins/day): No Frequency of alcohol use: None Drug Abuse: None Family History: Arthritis, Hyperlipidemia, Hypertension, Malignancy, Thyroid Disfunction Patient has homicidal ideation: No Pulmonary Medical History: Reports: Hx Asthma, Hx Bronchitis Renal/ Medical History: Denies: Hx Peritoneal Dialysis Musculoskeletal Medical History: Reports Hx Arthritis, Reports Hx Musculoskeletal Trauma Skin Medical History: Reports Hx Eczema Review of Systems - Review of Systems Notes: Constitutional: No fevers. No chills. EENT: No eye redness. No eye pain. No ear pain. No sore throat. Cardiovascular: No chest pain. No palpitations. Respiratory: Positive for shortness of breath Gastrointestinal: No abdominal pain. No nausea, vomiting, or diarrhea. Genitourinary: Atraumatic. No lesions. No pain. No discharge. Musculoskeletal: Atraumatic. No swelling. No deformities. Skin: No rash or lesions. Lymphatic: No swollen lymph nodes. Neurologic: No headache. No syncope. Psychiatric: No suicidal or homicidal ideation. Physical Exam - Vital signs Vitals: Temp Pulse Resp BP Pulse Ox 97.8 F 67 16 106/72 97 06/17/20 00:31 06/17/20 00:31 06/17/20 00:31 06/17/20 00:31 06/17/20 00:31 - Notes Notes: General: Well-developed, well-nourished. In no acute distress. Non-toxic appearing. Cardiac: Well-perfused. Regular rate and rhythm. No murmurs, rubs, or gallops. Pulmonary: Diminished bilaterally Abdominal: Non-distended. Non-rigid. Bowels sounds are present in all four quadrants. No guarding or rebound. HEENT: Head is atraumatic. Conjunctivae not reddened. No tearing. PERRL. EOMI. Orbits atraumatic. No periorbital swelling or erythema. Oropharynx is without erythema, swelling, or exudates. Neck: Supple. No adenopathy. No meningismus. Dermatologic: Warm with good turgor. No rash. Atraumatic. Chest: Atraumatic. No chest wall tenderness to palpation. Musculoskeletal: Moves all extremities well. No range of motion deficits. no muscular or joint tenderness. No paraspinal muscle tenderness. no midline spinal tenderness or step-off. Genitourinary: Examination deferred Neurologic: No gross neurologic deficits. Psychiatric: Normal mood. Course - Re-evaluation Re-evalutation: 06/17/20 01:37 Patient received 3 DuoNeb treatments in a row. Feeling significantly improved/symptoms resolved. Will discharge home with prescription for Atrovent solution. - Vital Signs Vital signs: Temp Pulse Resp BP Pulse Ox 97.8 F 67 16 106/72 97 06/17/20 00:31 06/17/20 00:31 06/17/20 00:31 06/17/20 00:31 06/17/20 00:31 Discharge - Discharge Clinical Impression: Asthma exacerbation Qualifiers: Asthma severity: unspecified severity Asthma persistence: unspecified Qualified Code(s): J45.901 - Unspecified asthma with (acute) exacerbation Condition: Good Disposition: HOME, SELF-CARE Instructions: Asthma ([facility]) Additional Instructions: You may add ipratropium to every third nebulizer treatment. Example: Albuterol with Ipratropium, 4 hrs later Albuterol, 4 hrs later Albuterol, 4 hrs later Albuterol with Ipratropium. Prescriptions: Ipratropium [place] [Atrovent 0.02% Neb 0.5 mg/2.5 ml Ampul] 0.5 mg IH Q12HP PRN #30 vial.neb PRN Reason:
[2020-06-17 02:57] VITALS: BP 130/74
== END 2020-06-17 02:06 | disposition home or self-care (01) ==
LOC: ER 00:21
DX: J45.901 Unspecified asthma with (acute) exacerbation (principal); R07.89 Other chest pain; R06.02 Shortness of breath; Z79.899 Other long term (current) drug therapy; Z79.51 Long term (current) use of inhaled steroids
CPT/HCPCS: 71045; 94640; 99283

== ENCOUNTER 2020-06-21 08:58 | Emergency (ER) | payer SELFPAY ==
[2020-06-21 09:11] VITALS: BP 108/64
--- NOTE | 2020-06-21 10:25 | ER Document Report ---
ED General - General Chief Complaint: Cough Stated Complaint: COUGH,SHORT OF BREATH Time Seen by Provider: 06/21/20 09:51 Mode of Arrival: Ambulatory Information source: Patient TRAVEL OUTSIDE OF THE [place] IN LAST 30 DAYS: No - HPI Patient complains to provider of: dyspnea Onset: Other - one week Onset/Duration: Gradual Quality of pain: No pain Severity: Moderate Pain Level: Denies Associated symptoms: Nonproductive cough, Sinus pain/drainage. denies: Fever, Hurts to breath, Nausea, Vomiting Exacerbated by: Movement, Deep breathing Relieved by: Remaining still Recently seen / treated by doctor: Yes - Related Data Allergies/Adverse Reactions: codeine Allergy (Verified 09/24/19 07:34) unknown nut - unspecified Allergy (Verified 09/24/19 15:10) vancomycin Adverse Reaction (Mild, Verified 09/24/19 16:03) sweating, warmth Past Medical History - General Information source: Patient - Social History Smoking Status: Never Smoker Frequency of alcohol use: None Drug Abuse: None Family History: Arthritis, Hyperlipidemia, Hypertension, Malignancy, Thyroid Disfunction Patient has homicidal ideation: No Pulmonary Medical History: Reports: Hx Asthma, Hx Bronchitis Renal/ Medical History: Denies: Hx Peritoneal Dialysis Musculoskeletal Medical History: Reports Hx Arthritis, Reports Hx Musculoskeletal Trauma Skin Medical History: Reports Hx Eczema Review of Systems - Review of Systems Constitutional: denies: Chills, Fever Cardiovascular: denies: Chest pain, Palpitations Respiratory: Cough, Short of breath -: Yes All other systems reviewed and negative Physical Exam - Vital signs Vitals: Temp Pulse Resp BP Pulse Ox 98.2 F 84 20 108/64 95 06/21/20 09:10 06/21/20 09:10 06/21/20 09:10 06/21/20 09:10 06/21/20 09:10 Interpretation: Normal - General General appearance: Appears well, Alert - HEENT Head: Normocephalic, Atraumatic Eyes: Normal Pupils: PERRL - Respiratory Respiratory status: No respiratory distress Chest status: Nontender Breath sounds: Normal Chest palpation: Normal - Cardiovascular Rhythm: Regular Heart sounds: Normal auscultation Murmur: No - Abdominal Inspection: Normal Distension: No distension Bowel sounds: Normal Tenderness: Nontender Organomegaly: No organomegaly - Back Back: Normal, Nontender - Extremities General upper extremity: Normal inspection, Nontender, Normal color, Normal ROM, Normal temperature General lower extremity: Normal inspection, Nontender, Normal color, Normal ROM, Normal temperature, Normal weight bearing. No: Marixa's sign - Neurological Neuro grossly intact: Yes Cognition: Normal Orientation: AAOx4 [place] Coma Scale Eye Opening: Spontaneous Erik Coma Scale Verbal: Oriented Erik Coma Scale Motor: Obeys Commands Erik Coma Scale Total: 15 Speech: Normal Motor strength normal: LUE, RUE, LLE, RLE Sensory: Normal - Psychological Associated symptoms: Normal affect, Normal mood - Skin Skin Temperature: Warm Skin Moisture: Dry Skin Color: Normal Course - Re-evaluation Re-evalutation: 06/21/20 10:22 Patient presents with persistent shortness of breath. He has been treated with albuterol and with steroids and this is now his third visit to a provider. He states he still feels short of breath and usually he requires Zithromax to improve. He states he has not tried Zithromax this time. He denies any known Covid exposures. No fever. On exam essentially unremarkable with clear lung sounds. Oxygen saturation is normal at 95% on room air. I reviewed his chest x-ray from 2 days ago which is unremarkable. I will try the patient on a course of Zithromax and test him for Covid. - Vital Signs Vital signs: Temp Pulse Resp BP Pulse Ox 98.2 F 84 20 108/64 95 06/21/20 09:10 06/21/20 09:10 06/21/20 09:10 06/21/20 09:10 06/21/20 09:10 Discharge - Discharge Clinical Impression: Person under investigation for COVID-19 URI (upper respiratory infection) Qualifiers: URI type: unspecified URI Qualified Code(s): J06.9 - Acute upper respiratory infection, unspecified Condition: Stable Disposition: HOME, SELF-CARE Instructions: COVID-19 Guidance for Persons Under Investigation, Upper Respiratory Illness ([facility]) Prescriptions: Azithromycin [Zithromax 250 mg Tablet] 250 mg PO ASDIR PRN #6 tablet PRN Reason: Forms: Return to Work Referrals: DUNIA ESPOSITO MD [ACTIVE STAFF] - Follow up in 3-5 days
== END 2020-06-21 10:34 | disposition home or self-care (01) ==
LOC: ER 08:58
DX: U07.1 COVID-19 (principal); J06.9 Acute upper respiratory infection, unspecified; R06.02 Shortness of breath; Z88.6 Allergy status to analgesic agent
CPT/HCPCS: 99283; 87635; C9803